=== PATIENT | female | born 1945 | race Caucasian/White ===

== ENCOUNTER 2025-01-15 09:09 | Inpatient (IN) | payer MEDICARE, MEDICAID ==
[2025-01-15] VITALS (20 sets, daily range): BP systolic 80–117; BP diastolic 42–70; PULSE 98–137; RESP 18; O2SAT 87–99
[~2025-01-15] VITALS: Ht 160 cm; Wt 104.5 kg
[~2025-01-15 09:09] MED LIST: NORepinephrine 8 MG in NS 250 ML BAG (32 mcg/ml) IV ONE
[2025-01-15] MEDS ORDERED: VANCOMYCIN 1GM 200ML H20 (PEG) 200 ML IV ONE (09:25)
[2025-01-15] MEDS: midazolam 100mg in NS 100ml 100 ML IV ONE (09:27)
[2025-01-15] MEDS: fentaNYL/PF 50MCG/1 ML 2ML syringe IV ONE (09:32)
[2025-01-15] MEDS ORDERED: iohexol 300mg/ml 100ml inj. ONE (09:48)
[2025-01-15] MEDS ORDERED: iohexol 300 MG/1 ML 50ml polymer ONE (09:49)
[2025-01-15 10:04] LABS: ABG BASE EXCESS -2.5 mmol/L (-2.0-3.0); ABG HCO3 24.1 mmol/L (21.0-28.0); ABG OXYGEN SATURATION 94.2 % (94.0-98.0); ABG PCO2 (T) 49.5 mmHg (32.0-45.0); ABG PH (T) 7.305 (7.350-7.450); ABG PO2 (T) 74.8 mmHg (83.0-108.0); ALLEN'S TEST POSITIVE; FCOHb 0.6 % (0.5-1.5); FHHb 5.7 % (0.0-5.0); FMetHb 0.3 % (0.0-1.5); FO2Hb 93.4 % (94.0-98.0); MODE VENT - AC; PATIENT TEMPERATURE 36.8; PEEP 8 cm H2O; RESPIRATORY RATE 18 b/min; TIDAL VOLUME 450 mL; TOTAL HEMOGLOBIN 11.1 G/dl (12.0-16.0)
[2025-01-15] MEDS: NORepinephrine 8mg/ 250ml NS 250 ML IV SCH (10:04)
[2025-01-15] MEDS: fentaNYL/PF 50MCG/1 ML 2ML syringe IV PRN (10:14)
[2025-01-15] MEDS ORDERED: morphine 2 MG/ML inj. syringe IV PRN (10:35)
[2025-01-15] MEDS ORDERED: ondansetron/PF 4mg/2ml inj IV PRN (10:35)
[2025-01-15] MEDS: LidoCAINE 2% Topical Jelly 11mL syringe (UROJET) TOP ONE (10:35)
[2025-01-15] MEDS ORDERED: acetaminophen 325mg tablet PO PRN ×2 (10:35)
[2025-01-15] MEDS ORDERED: magnesium hydroxide 30ml (MOM) UD suspension PO PRN (10:35)
[2025-01-15] MEDS ORDERED: morphine 4 MG/ML inj SYRINge IV PRN (10:35)
[2025-01-15 11:16] LABS: D-DIMER 3.58 MG/L FEU (0-0.50); INR 1.1 INR; PROTHROMBIN TIME 11.7 SECONDS (9.0-12.0)
[2025-01-15 11:18] LABS: ALANINE AMINOTRANSFERASE 24 U/L (12-78); ALBUMIN 2.5 G/DL (3.4-5.0); ALBUMIN/GLOBULIN RATIO 0.4 (1.1-1.5); ALKALINE PHOSPHATASE 106 IU/L (46-116); ANION GAP 9 (8-16); ASPARTATE AMINO TRANSFERASE 46 U/L (10-37); BILIRUBIN,TOTAL 0.4 MG/DL (0.1-1.0); BLOOD UREA NITROGEN 41 MG/DL (7-18); BUN/CREATININE RATIO 30.4 (10.0-20.0); CALCIUM 10.6 MG/DL (8.5-10.1); CHLORIDE 100 MMOL/L (99-107); CREATININE 1.35 MG/DL (0.40-0.90); GLUCOSE 332 MG/DL (70-104); SODIUM 142 MMOL/L (135-145); TOTAL CARBON DIOXIDE 33.1 MMOL/L (24-32); TOTAL PROTEIN 9.1 G/DL (6.4-8.2); eCRCL 27 ML/MIN; eGFR 38 ML/MIN
[2025-01-15 11:20] LABS: POTASSIUM 5.9 MMOL/L (3.5-5.1)
[2025-01-15] MEDS: FENTANYL-0.9 % NACL/PF 100 ML IV SCH (11:23)
[2025-01-15 11:26] LABS: C-REACTIVE PROTEIN 13.33 MG/DL (0.0-0.5); MAGNESIUM 2.4 MG/DL (1.5-2.4); PRO BRAIN NATRIURETIC PEPTIDE 2255 PG/ML (0-450)
[2025-01-15 11:27] LABS: APTT 24 SECONDS (22-32); FIBRINOGEN > 860 MG/DL (177-424)
[2025-01-15 12:02] LABS: BASOPHILS # (AUTO) 0.1 X10'3 (0-0.2); BASOPHILS % (AUTO) 0.4 % (0-1); EOSINOPHILS % (AUTO) 0.1 % (0-6); HEMATOCRIT 32.7 % (35.0-45.0); HEMOGLOBIN 10.1 g/dl (12.0-16.0); LYMPHOCYTES # (AUTO) 0.7 X10'3 (1.1-4.8); MEAN CORPUSCULAR HEMOGLOBIN 28.7 PG (27.0-31.0); MEAN CORPUSCULAR VOLUME 92.6 FL (78-98); MONOCYTES # (AUTO) 0.8 X10'3 (0-0.9); MONOCYTES % (AUTO) 4.9 % (2-12); NEUTROPHILS % (AUTO) 90.6 % (42-75); RED BLOOD COUNT 3.54 X10'6 (4.20-5.60); RED CELL DISTRIBUTION WIDTH 19.1 % (11.5-14.5); WHITE BLOOD COUNT 16.6 X10'3 (4.5-11.0)
[2025-01-15 12:05] LABS: MEAN PLATELET VOLUME 9.4 FL (7.4-10.4); PLATELET COUNT 261.8 X10'3 (140-440)
[2025-01-15 13:40] LABS: THYROID STIMULATING HORMONE 1.42 ulU/ml (0.34-4.50)
[2025-01-15] MEDS ORDERED: vancomycin inj 1,000 MG in normal saline 250ml IV soln 250 ML IV ONE (14:40)
[2025-01-15] MEDS: midazolam 100mg in NS 100ml 100 ML IV SCH (14:44)
[2025-01-15] MEDS: azithromycin/NS 500mg/250ml 250 ML IV ONE (14:45)
[2025-01-15 14:53] LABS: BILIRUBIN,URINE NEGATIVE (Neg); CLARITY,URINE CLEAR (Clear); COLOR,URINE YELLOW (Yellow); GLUCOSE, URINE 100 mg/dl (Neg); KETONES,URINE NEGATIVE (Neg); LEUKOCYTE ESTERASE ,URINE TRACE (Neg); NITRITES, URINE NEGATIVE (Neg); OCCULT BLOOD,URINE TRACE-INTACT (Neg); PH,URINE 7.5 (4.8-8.0); PROTEIN,URINE 30 mg/dl (Neg); UROBILINOGEN,URINE 0.2 E.U/dL (0.2-1.0)
[2025-01-15 14:54] LABS: UA COLLECTION TYPE NON-SPECIFIED
[2025-01-15] MEDS ORDERED: albuterol 2.5 MG/3 ML nebule NEB PRN (14:55)
[2025-01-15 15:04] LABS: BACTERIA,URINE FEW /HPF (Neg); MUCUS STRANDS FEW /LPF (Neg); SQUAMOUS EPITHELIAL CELL,UR FEW /LPF (FEW); WBC,URINE 30-50 /HPF (0-4)
[2025-01-15 15:05] LABS: RENAL CELLS, URINE FEW /HPF; WBC CLUMPS,URINE FEW /HPF (NEGATIVE)
[2025-01-15] MEDS: CefTRIAXone 2gm/NS 100ml IVPB 50 ML IV ONE (15:09)
[2025-01-15] MEDS ORDERED: acetaminophen 1,000mg/100ml IV 100 ML IV SCH (15:25)
[2025-01-15] MEDS: acetaminophen 1,000mg/100ml IV 100 ML IV ONE (15:28)
[2025-01-15] MEDS: methylPREDNISolone sod succ/PF 40mg inj. IV SCH (15:28)
[2025-01-15] MEDS: piperacillin/tazo 3.375gm/50ml 50 ML IV SCH (15:28)
[2025-01-15] MEDS: normal saline 1000ml 1,000 ML IV ONE (15:36)
[2025-01-15] MEDS: vancomycin/NS 1 GM ADD-VANTAGE 250 ML IV ONE (15:54)
[2025-01-15] MEDS: normal saline 1000ml 1,000 ML IV SCH (15:55)
[2025-01-15] MEDS: ipratropium/albuterol 3ml nebule NEB SCH (16:00)
[2025-01-15] MEDS ORDERED: FOLI1TAB27 PO (16:07)
[2025-01-15] MEDS ORDERED: DULO20CA50 PO (16:07)
[2025-01-15] MEDS ORDERED: CALC1CAP21 PO (16:07)
[2025-01-15] MEDS ORDERED: VITC500T PO (16:07)
[2025-01-15] MEDS ORDERED: FURO-150 PO (16:08)
[2025-01-15] MEDS ORDERED: IPRA3AMP31 NEB (16:08)
[2025-01-15] MEDS ORDERED: METH2.5T55 PO (16:09)
[2025-01-15] MEDS ORDERED: LOP12.5T PO (16:10)
[2025-01-15] MEDS ORDERED: NAPR220C62 PO (16:12)
[2025-01-15] MEDS ORDERED: MULT-1085 PO (16:12)
[2025-01-15] MEDS ORDERED: POTA-366 PO (16:16)
[2025-01-15] MEDS ORDERED: OMEP20CA15 PO (16:16)
[2025-01-15] MEDS ORDERED: PRED1TAB PO (16:16)
[2025-01-15] MEDS: ketorolac trometh 15mg/ml vial 15 MG/ML ML IV ONE (16:18)
[2025-01-15] MEDS: heparin, porcine 5000 units/ml vial SQ SCH (17:30)
[2025-01-15] MEDS ORDERED: dextrose 50%-water 50ml dispensing syringe IV PRN ×2 (18:40)
[2025-01-15] MEDS ORDERED: DEXTROSE 15 GM of carb/4 tabs (each vial/BOTTLE has 4 tablets) PO PRN ×2 (18:40)
[2025-01-15] MEDS ORDERED: glucagon, human recombinant 1mg kit SUBCUT PRN (18:40)
[2025-01-15] MEDS: acetaminophen 1,000mg/100ml IV 100 ML IV SCH (19:03)
[2025-01-15] MEDS: pantoprazole 40 MG vial IV SCH (20:29)
[2025-01-15] MEDS: INSULIN LISPRO 100 UNIT/ML INSULN.PEN MULTI-DOSE SQ SCH (21:42)
[2025-01-16] VITALS (45 sets, daily range): BP systolic 97–129; BP diastolic 51–76; PULSE 89–131; RESP 18–30; O2SAT 8–99
[2025-01-16 02:34] LABS: BASOPHILS % (AUTO) 0.1 % (0-1); MEAN CORPUSCULAR VOLUME 91.3 FL (78-98); MONOCYTES # (AUTO) 0.2 X10'3 (0-0.9); RED BLOOD COUNT 3.39 X10'6 (4.20-5.60)
[2025-01-16 02:37] LABS: EOSINOPHILS % (AUTO) 0.1 % (0-6); HEMOGLOBIN 9.8 g/dl (12.0-16.0); LYMPHOCYTES # (AUTO) 0.9 X10'3 (1.1-4.8); LYMPHOCYTES % (AUTO) 6.1 % (21-51); MEAN CORPUSCULAR HGB CONC 31.7 g/dL (33.0-36.5); MEAN PLATELET VOLUME 9.8 FL (7.4-10.4); MONOCYTES % (AUTO) 1.7 % (2-12); NEUTROPHILS # (AUTO) 12.8 X10'3 (1.8-7.7); PLATELET COUNT 135 X10'3 (140-440); RED CELL DISTRIBUTION WIDTH 19.7 % (11.5-14.5); WHITE BLOOD COUNT 13.9 X10'3 (4.5-11.0)
[2025-01-16 02:53] LABS: ALANINE AMINOTRANSFERASE 18 U/L (12-78); ALBUMIN/GLOBULIN RATIO 0.4 (1.1-1.5); ALKALINE PHOSPHATASE 84 IU/L (46-116); ANION GAP 15 (8-16); ASPARTATE AMINO TRANSFERASE 39 U/L (10-37); BILIRUBIN,TOTAL 0.4 MG/DL (0.1-1.0); BLOOD UREA NITROGEN 49 MG/DL (7-18); BUN/CREATININE RATIO 30.4 (10.0-20.0); CALCIUM 8.9 MG/DL (8.5-10.1); CHLORIDE 105 MMOL/L (99-107); CREATININE 1.61 MG/DL (0.40-0.90); GLUCOSE 233 MG/DL (70-104); MAGNESIUM 1.6 MG/DL (1.5-2.4); PHOSPHORUS 2.4 MG/DL (2.3-4.5); POTASSIUM 4.2 MMOL/L (3.5-5.1); SODIUM 144 MMOL/L (135-145); TOTAL CARBON DIOXIDE 24.1 MMOL/L (24-32); TOTAL PROTEIN 7.4 G/DL (6.4-8.2); eCRCL 23 ML/MIN; eGFR 31 ML/MIN
[2025-01-16 03:01] LABS: TOTAL CELLS COUNTED 100
[2025-01-16 03:09] LABS: ANISOCYTOSIS 2+; MICROCYTOSIS 1+; STOMATOCYTES 2+
[2025-01-16 03:30] LABS: ABG BASE EXCESS -1.3 mmol/L (-2.0-3.0); ABG HCO3 22.2 mmol/L (21.0-28.0); ABG OXYGEN SATURATION 97.6 % (94.0-98.0); ABG PCO2 (T) 34.2 mmHg (32.0-45.0); ABG PH (T) 7.434 (7.350-7.450); ABG PO2 (T) 95.4 mmHg (83.0-108.0); ALLEN'S TEST POSITIVE; FCOHb 0.9 % (0.5-1.5); FHHb 2.4 % (0.0-5.0); FMetHb 0.3 % (0.0-1.5); FO2Hb 96.4 % (94.0-98.0); MODE VC+; PATIENT TEMPERATURE 37.8; PEEP 8 cm H2O; RESPIRATORY RATE 18 b/min; TIDAL VOLUME 450 mL; TOTAL HEMOGLOBIN 10.4 G/dl (12.0-16.0)
[2025-01-16] MEDS: vancomycin/NS 1 GM ADD-VANTAGE 250 ML IV ONE (04:52)
[2025-01-16] MEDS: ringers solution, lacted 1,000 ML IV ONE (06:52)
[2025-01-16] MEDS: metoprolol tartrate 1mg/ml inj IV ONE (07:29)
[2025-01-16] MEDS ORDERED: potassium Cl 40MEQ/270ML bag 270 ML IV PRN ×2 (12:05)
[2025-01-16] MEDS ORDERED: magnesium hydroxide 30ml (MOM) UD suspension OGT PRN (12:25)
[2025-01-16] MEDS ORDERED: DEXTROSE 15 GM of carb/4 tabs (each vial/BOTTLE has 4 tablets) OGT PRN ×2 (12:26→12:27)
[2025-01-16] MEDS ORDERED: acetaminophen 325mg/10.15ml oral unit dose solution OGT PRN (12:26)
[2025-01-16] MEDS: mineral oil/petrolatum ophthal oint EACHEYE SCH (14:00)
[2025-01-16] MEDS ORDERED: DEXTROSE 15 GM of carb/4 tabs (each vial/BOTTLE has 4 tablets) PO PRN ×2 (15:35)
[2025-01-16] MEDS ORDERED: glucagon, human recombinant 1mg kit SUBCUT PRN (15:35)
[2025-01-16] MEDS ORDERED: dextrose 50%-water 50ml dispensing syringe IV PRN ×2 (15:35)
[2025-01-16] MEDS ORDERED: INSULIN LISPRO 100 UNIT/ML INSULN.PEN MULTI-DOSE SQ SCH (17:00)
[2025-01-16] MEDS ORDERED: albumin (Human) 5% 250ml 250 ML IV SCH (20:00)
[2025-01-16] MEDS ORDERED: insulin glargine (Lantus) pen - multi-dose SQ SCH (21:00)
[2025-01-16] MEDS: INSULIN LISPRO 100 UNIT/ML INSULN.PEN MULTI-DOSE SQ SCH (21:00)
[2025-01-17] VITALS (52 sets, daily range): BP systolic 104–141; BP diastolic 52–81; PULSE 92–130; RESP 15–33; O2SAT 88–99
[2025-01-17 03:19] LABS: EOSINOPHILS % (AUTO) 0 % (0-6); HEMOGLOBIN 8.7 g/dl (12.0-16.0); LYMPHOCYTES # (AUTO) 0.6 X10'3 (1.1-4.8); LYMPHOCYTES % (AUTO) 5.8 % (21-51); MONOCYTES # (AUTO) 0.5 X10'3 (0-0.9)
[2025-01-17 03:21] LABS: BASOPHILS % (AUTO) 0.2 % (0-1); HEMATOCRIT 27.8 % (35.0-45.0); MEAN CORPUSCULAR HEMOGLOBIN 28.5 PG (27.0-31.0); MEAN CORPUSCULAR HGB CONC 31.4 g/dL (33.0-36.5); MEAN PLATELET VOLUME 8.6 FL (7.4-10.4); NEUTROPHILS # (AUTO) 9.5 X10'3 (1.8-7.7); PLATELET COUNT 114 X10'3 (140-440); RED BLOOD COUNT 3.05 X10'6 (4.20-5.60); RED CELL DISTRIBUTION WIDTH 19.6 % (11.5-14.5); WHITE BLOOD COUNT 10.6 X10'3 (4.5-11.0)
[2025-01-17 03:33] LABS: ABG BASE EXCESS 1.3 mmol/L (-2.0-3.0); ABG HCO3 25.1 mmol/L (21.0-28.0); ABG OXYGEN SATURATION 96.1 % (94.0-98.0); ABG PCO2 (T) 37.4 mmHg (32.0-45.0); ABG PH (T) 7.447 (7.350-7.450); ALLEN'S TEST POSITIVE; FCOHb 1.1 % (0.5-1.5); FHHb 3.8 % (0.0-5.0); FMetHb 0.3 % (0.0-1.5); FO2Hb 94.8 % (94.0-98.0); PATIENT TEMPERATURE 37.7; PEEP 5 cm H2O; RESPIRATORY RATE 18 b/min; TIDAL VOLUME 450 mL; TOTAL HEMOGLOBIN 9.4 G/dl (12.0-16.0)
[2025-01-17 03:33] LABS: ALANINE AMINOTRANSFERASE 13 U/L (12-78); ALBUMIN/GLOBULIN RATIO 0.4 (1.1-1.5); ALKALINE PHOSPHATASE 68 IU/L (46-116); ANION GAP 11 (8-16); ASPARTATE AMINO TRANSFERASE 31 U/L (10-37); BILIRUBIN,TOTAL 0.2 MG/DL (0.1-1.0); BLOOD UREA NITROGEN 46 MG/DL (7-18); BUN/CREATININE RATIO 31.7 (10.0-20.0); CALCIUM 8.4 MG/DL (8.5-10.1); CHLORIDE 110 MMOL/L (99-107); CREATININE 1.45 MG/DL (0.40-0.90); GLUCOSE 192 MG/DL (70-104); MAGNESIUM 1.5 MG/DL (1.5-2.4); PHOSPHORUS 1.7 MG/DL (2.3-4.5); POTASSIUM 3.6 MMOL/L (3.5-5.1); SODIUM 147 MMOL/L (135-145); TOTAL CARBON DIOXIDE 26.5 MMOL/L (24-32); TOTAL PROTEIN 6.9 G/DL (6.4-8.2); eCRCL 25 ML/MIN; eGFR 35 ML/MIN
[2025-01-17 03:50] LABS: ANISOCYTOSIS 2+; MICROCYTOSIS 1+; STOMATOCYTES 1+
[2025-01-17] MEDS: methylPREDNISolone sod succ/PF 40mg inj. IV SCH (07:37)
[2025-01-17] MEDS: metoprolol tartrate 25mg tablet PO SCH (07:38)
[2025-01-17] MEDS: acetaminophen 325mg/10.15ml oral unit dose solution OGT PRN (09:34)
[2025-01-17] MEDS: COMMUNICATION ORDER 1 EA MISC MC ONE (15:42)
[2025-01-17] MEDS: insulin regular, human U-100 10ml vial - multi-dose SQ SCH (21:52)
[2025-01-18] VITALS (39 sets, daily range): BP systolic 108–150; BP diastolic 54–86; PULSE 82–122; RESP 14–30; O2SAT 95–99
[2025-01-18 04:58] LABS: ABG HCO3 22.7 mmol/L (21.0-28.0); ABG OXYGEN SATURATION 97.7 % (94.0-98.0); ABG PCO2 (T) 39.7 mmHg (32.0-45.0); ABG PH (T) 7.379 (7.350-7.450); ABG PO2 (T) 103.6 mmHg (83.0-108.0); FCOHb 0.9 % (0.5-1.5); FHHb 2.3 % (0.0-5.0); FMetHb 0.3 % (0.0-1.5); FO2Hb 96.5 % (94.0-98.0); PATIENT TEMPERATURE 37.7; PEEP 5 cm H2O; RESPIRATORY RATE 18 b/min; TIDAL VOLUME 450 mL
[2025-01-18 08:10] LABS: ALANINE AMINOTRANSFERASE 18 U/L (12-78); ALBUMIN/GLOBULIN RATIO 0.4 (1.1-1.5); ALKALINE PHOSPHATASE 54 IU/L (46-116); ANION GAP 11 (8-16); ASPARTATE AMINO TRANSFERASE 33 U/L (10-37); BILIRUBIN,TOTAL 0.2 MG/DL (0.1-1.0); BLOOD UREA NITROGEN 55 MG/DL (7-18); BUN/CREATININE RATIO 41.7 (10.0-20.0); CALCIUM 8.3 MG/DL (8.5-10.1); CHLORIDE 114 MMOL/L (99-107); CREATININE 1.32 MG/DL (0.40-0.90); GLUCOSE 196 MG/DL (70-104); MAGNESIUM 1.6 MG/DL (1.5-2.4); PHOSPHORUS 1.3 MG/DL (2.3-4.5); POTASSIUM 3.5 MMOL/L (3.5-5.1); SODIUM 150 MMOL/L (135-145); TOTAL CARBON DIOXIDE 25.3 MMOL/L (24-32); TOTAL PROTEIN 6.5 G/DL (6.4-8.2); eCRCL 28 ML/MIN; eGFR 39 ML/MIN
[2025-01-18 13:56] LABS: BASOPHILS % (AUTO) 0.1 % (0-1); EOSINOPHILS % (AUTO) 0.1 % (0-6); HEMOGLOBIN 9.3 g/dl (12.0-16.0); LYMPHOCYTES # (AUTO) 0.6 X10'3 (1.1-4.8); MEAN CORPUSCULAR VOLUME 92.9 FL (78-98); NEUTROPHILS # (AUTO) 10.5 X10'3 (1.8-7.7); RED CELL DISTRIBUTION WIDTH 20.2 % (11.5-14.5)
[2025-01-18 13:58] LABS: HEMATOCRIT 30.7 % (35.0-45.0); LYMPHOCYTES % (AUTO) 4.7 % (21-51); MEAN CORPUSCULAR HGB CONC 30.1 g/dL (33.0-36.5); MEAN PLATELET VOLUME 9.5 FL (7.4-10.4); MONOCYTES # (AUTO) 0.7 X10'3 (0-0.9); NEUTROPHILS % (AUTO) 89.1 % (42-75); PLATELET COUNT 111 X10'3 (140-440); RED BLOOD COUNT 3.31 X10'6 (4.20-5.60); WHITE BLOOD COUNT 11.7 X10'3 (4.5-11.0)
[2025-01-18] MEDS: metoprolol tartrate 25mg tablet PO SCH (13:58)
[2025-01-18] MEDS: vancomycin/NS 1 GM ADD-VANTAGE 250 ML IV SCH (13:58)
[2025-01-18] MEDS: MESSAGE TO NURSING IV ONE ×2 (13:59→21:34)
[2025-01-18] MEDS ORDERED: insulin regular, human U-100 10ml vial - multi-dose SQ SCH (14:00)
[2025-01-18 14:06] LABS: APTT 24 SECONDS (22-32); INR 1.1 INR; PROTHROMBIN TIME 11.3 SECONDS (9.0-12.0)
[2025-01-18] MEDS: heparin 10,000 units/1 ML INJ IV ONE (14:07)
[2025-01-18] MEDS: heparin 25,000 UNIT/250ml bag 250 ML IV PRN (14:09)
[2025-01-18 14:28] LABS: TOTAL CELLS COUNTED 100
[2025-01-18 14:29] LABS: ANISOCYTOSIS 3+; PLATELET ESTIMATE DECREASED
[2025-01-18 14:30] LABS: MICROCYTOSIS 1+; STOMATOCYTES 1+
[2025-01-18] MEDS: INSULIN LISPRO 100 UNIT/ML INSULN.PEN MULTI-DOSE SQ SCH (17:13)
[2025-01-18] MEDS: methylPREDNISolone sod succ 125mg/2ml vial IV SCH (21:17)
[2025-01-18] MEDS: heparin 10,000 units/1 ML INJ IV PRN (21:24)
[2025-01-18] MEDS: insulin glargine (Lantus) pen - multi-dose SQ SCH (21:26)
[2025-01-19] VITALS (30 sets, daily range): BP systolic 120–145; BP diastolic 61–84; PULSE 61–110; RESP 10–29; TEMP 97.2–97.6; O2SAT 89–100
[2025-01-19 03:42] LABS: BASOPHILS % (AUTO) 0 % (0-1); EOSINOPHILS % (AUTO) 0 % (0-6); HEMATOCRIT 29.6 % (35.0-45.0); HEMOGLOBIN 9.1 g/dl (12.0-16.0); LYMPHOCYTES # (AUTO) 0.9 X10'3 (1.1-4.8); LYMPHOCYTES % (AUTO) 5.3 % (21-51); MEAN CORPUSCULAR HEMOGLOBIN 28.5 PG (27.0-31.0); MEAN CORPUSCULAR HGB CONC 30.6 g/dL (33.0-36.5); MEAN CORPUSCULAR VOLUME 93.1 FL (78-98); MEAN PLATELET VOLUME 9.7 FL (7.4-10.4); MONOCYTES # (AUTO) 1.2 X10'3 (0-0.9); MONOCYTES % (AUTO) 7.1 % (2-12); NEUTROPHILS # (AUTO) 14.2 X10'3 (1.8-7.7); NEUTROPHILS % (AUTO) 87.6 % (42-75); PLATELET COUNT 118 X10'3 (140-440); RED BLOOD COUNT 3.18 X10'6 (4.20-5.60); RED CELL DISTRIBUTION WIDTH 20.7 % (11.5-14.5); WHITE BLOOD COUNT 16.2 X10'3 (4.5-11.0)
[2025-01-19 03:59] LABS: TOTAL CELLS COUNTED 100
[2025-01-19] MEDS: MESSAGE TO NURSING IV ONE ×4 (04:25→23:04)
[2025-01-19 04:44] LABS: ALANINE AMINOTRANSFERASE 57 U/L (12-78); ALBUMIN 2.3 G/DL (3.4-5.0); ALBUMIN/GLOBULIN RATIO 0.5 (1.1-1.5); ALKALINE PHOSPHATASE 56 IU/L (46-116); ANION GAP 10 (8-16); ASPARTATE AMINO TRANSFERASE 93 U/L (10-37); BILIRUBIN,TOTAL 0.3 MG/DL (0.1-1.0); BLOOD UREA NITROGEN 52 MG/DL (7-18); BUN/CREATININE RATIO 43.7 (10.0-20.0); CALCIUM 8.6 MG/DL (8.5-10.1); CHLORIDE 112 MMOL/L (99-107); CREATININE 1.19 MG/DL (0.40-0.90); GLUCOSE 171 MG/DL (70-104); MAGNESIUM 1.6 MG/DL (1.5-2.4); PHOSPHORUS 3.1 MG/DL (2.3-4.5); SODIUM 147 MMOL/L (135-145); TOTAL CARBON DIOXIDE 24.9 MMOL/L (24-32); TOTAL PROTEIN 6.9 G/DL (6.4-8.2); eCRCL 31 ML/MIN; eGFR 44 ML/MIN
[2025-01-19 04:45] LABS: POTASSIUM 4.3 MMOL/L (3.5-5.1)
[2025-01-19] MEDS ORDERED: vancomycin/NS 1 GM ADD-VANTAGE 250 ML X 1 DOSE IV SCH (09:00)
[2025-01-19 11:32] LABS: CHOLESTEROL 157 MG/DL (0-200); HDL CHOLESTEROL 26 MG/DL (35-60); LDL CHOLESTEROL 93 MG/DL (50-100); TRIGLYCERIDES 296 MG/DL (20-135)
[2025-01-19] MEDS: furosemide 40mg/4ml inj IV ONE (12:45)
[2025-01-19] MEDS: clopidogrel 75mg tablet PO SCH (13:03)
[2025-01-19] MEDS ORDERED: acetaminophen 325mg tablet PO PRN (14:25)
[2025-01-19] MEDS: acetaminophen 325mg tablet PO PRN (14:42)
[2025-01-19] MEDS: insulin glargine (Lantus) pen - multi-dose SQ SCH (20:24)
[2025-01-20] VITALS (24 sets, daily range): BP systolic 123–138; BP diastolic 55–70; PULSE 59–107; RESP 14–31; TEMP 96.3–97.8; O2SAT 89–98
[2025-01-20 07:17] LABS: ALANINE AMINOTRANSFERASE 94 U/L (12-78); ALBUMIN 2.3 G/DL (3.4-5.0); ALBUMIN/GLOBULIN RATIO 0.5 (1.1-1.5); ALKALINE PHOSPHATASE 53 IU/L (46-116); ANION GAP 11 (8-16); ASPARTATE AMINO TRANSFERASE 90 U/L (10-37); BILIRUBIN,TOTAL 0.4 MG/DL (0.1-1.0); BLOOD UREA NITROGEN 61 MG/DL (7-18); BUN/CREATININE RATIO 45.5 (10.0-20.0); CHLORIDE 109 MMOL/L (99-107); CREATININE 1.34 MG/DL (0.40-0.90); GLUCOSE 152 MG/DL (70-104); MAGNESIUM 1.7 MG/DL (1.5-2.4); POTASSIUM 4.2 MMOL/L (3.5-5.1); SODIUM 147 MMOL/L (135-145); TOTAL CARBON DIOXIDE 27.2 MMOL/L (24-32); TOTAL PROTEIN 6.6 G/DL (6.4-8.2); eCRCL 27 ML/MIN; eGFR 38 ML/MIN
[2025-01-20] MEDS: MESSAGE TO NURSING IV ONE ×3 (08:20→20:30)
[2025-01-20 10:23] LABS: BASOPHILS % (AUTO) 0.1 % (0-1); HEMOGLOBIN 9.3 g/dl (12.0-16.0); LYMPHOCYTES # (AUTO) 0.7 X10'3 (1.1-4.8); MEAN CORPUSCULAR HEMOGLOBIN 28.3 PG (27.0-31.0); MEAN PLATELET VOLUME 9.7 FL (7.4-10.4); MONOCYTES # (AUTO) 0.7 X10'3 (0-0.9)
[2025-01-20 10:25] LABS: EOSINOPHILS % (AUTO) 0.1 % (0-6); HEMATOCRIT 30.5 % (35.0-45.0); MEAN CORPUSCULAR HGB CONC 30.6 g/dL (33.0-36.5); MEAN CORPUSCULAR VOLUME 92.3 FL (78-98); MONOCYTES % (AUTO) 6.4 % (2-12); NEUTROPHILS # (AUTO) 10.1 X10'3 (1.8-7.7); NEUTROPHILS % (AUTO) 87.4 % (42-75); WHITE BLOOD COUNT 11.5 X10'3 (4.5-11.0)
[2025-01-20 10:48] LABS: PLATELET COUNT 151 X10'3 (140-440)
[2025-01-20] MEDS ORDERED: MESSAGE TO NURSING IV ONE ×2 (13:45)
[2025-01-20] MEDS ORDERED: CLOP75TA34 PO (15:01)
[2025-01-20] MEDS: metoprolol tartrate 25mg tablet PO SCH (20:22)
[2025-01-20] MEDS ORDERED: VANCOMYCIN LEVEL IV ONE (20:30)
[2025-01-21] VITALS (9 sets, daily range): BP systolic 140–146; BP diastolic 68–74; PULSE 61–76; RESP 17–31; TEMP 97.3–98; O2SAT 91–99
[2025-01-21 03:11] LABS: EOSINOPHILS % (AUTO) 0 % (0-6); MEAN CORPUSCULAR HGB CONC 30.5 g/dL (33.0-36.5); MEAN PLATELET VOLUME 9.7 FL (7.4-10.4); MONOCYTES # (AUTO) 0.7 X10'3 (0-0.9); MONOCYTES % (AUTO) 5.6 % (2-12)
[2025-01-21 03:13] LABS: BASOPHILS % (AUTO) 0.1 % (0-1); HEMATOCRIT 29.9 % (35.0-45.0); HEMOGLOBIN 9.1 g/dl (12.0-16.0); LYMPHOCYTES # (AUTO) 0.6 X10'3 (1.1-4.8); LYMPHOCYTES % (AUTO) 4.7 % (21-51); MEAN CORPUSCULAR HEMOGLOBIN 28.5 PG (27.0-31.0); MEAN CORPUSCULAR VOLUME 93.4 FL (78-98); NEUTROPHILS # (AUTO) 11.9 X10'3 (1.8-7.7); NEUTROPHILS % (AUTO) 89.6 % (42-75); RED CELL DISTRIBUTION WIDTH 20.7 % (11.5-14.5); WHITE BLOOD COUNT 13.3 X10'3 (4.5-11.0)
[2025-01-21 03:22] LABS: PLATELET COUNT 129 X10'3 (140-440)
[2025-01-21 03:26] LABS: ALANINE AMINOTRANSFERASE 93 U/L (12-78); ALBUMIN 2.4 G/DL (3.4-5.0); ALBUMIN/GLOBULIN RATIO 0.6 (1.1-1.5); ALKALINE PHOSPHATASE 64 IU/L (46-116); ANION GAP 10 (8-16); ASPARTATE AMINO TRANSFERASE 63 U/L (10-37); BILIRUBIN,TOTAL 0.4 MG/DL (0.1-1.0); BLOOD UREA NITROGEN 67 MG/DL (7-18); BUN/CREATININE RATIO 47.5 (10.0-20.0); CALCIUM 9.2 MG/DL (8.5-10.1); CHLORIDE 109 MMOL/L (99-107); CREATININE 1.41 MG/DL (0.40-0.90); GLUCOSE 182 MG/DL (70-104); MAGNESIUM 1.8 MG/DL (1.5-2.4); POTASSIUM 4.4 MMOL/L (3.5-5.1); SODIUM 146 MMOL/L (135-145); TOTAL CARBON DIOXIDE 27.2 MMOL/L (24-32); TOTAL PROTEIN 6.7 G/DL (6.4-8.2); eCRCL 26 ML/MIN; eGFR 36 ML/MIN
[2025-01-21] MEDS ORDERED: heparin 25,000 UNIT/250ml bag 250 ML IV PRN (03:54)
[2025-01-21 04:05] LABS: TOTAL CELLS COUNTED 100
[2025-01-21] MEDS: MESSAGE TO NURSING IV ONE (04:10)
[2025-01-21] MEDS ORDERED: VANCOMYCIN LEVEL IV ONE (12:30)
== END 2025-01-21 12:00 | DRG 871 ==
LOC: ER 09:09 → ED HOLD 10:39 → CICU 2S 17:04 → PCU 3S 01-19 21:05
PROVIDERS: ADMIT Internal Medicine Critical Care Medicine; ATTEND Internal Medicine Critical Care Medicine
PROC: 0BH17EZ Insertion of Endotracheal Airway into Trachea, Via Natural or Artificial Opening (ICD-10-PCS; principal; 2025-01-15)
PROC: 5A1945Z Respiratory Ventilation, 24-96 Consecutive Hours (ICD-10-PCS; 2025-01-15)
PROC: 05HY33Z Insertion of Infusion Device into Upper Vein, Percutaneous Approach (ICD-10-PCS; 2025-01-15)
PROC: B54MZZA Ultrasonography of Right Upper Extremity Veins, Guidance (ICD-10-PCS; 2025-01-15)
PROC: BW251ZZ Computerized Tomography (CT Scan) of Chest, Abdomen and Pelvis using Low Osmolar Contrast (ICD-10-PCS; 2025-01-15)
PROC: B3251ZZ Computerized Tomography (CT Scan) of Bilateral Common Carotid Arteries using Low Osmolar Contrast (ICD-10-PCS; 2025-01-15)
PROC: B32G1ZZ Computerized Tomography (CT Scan) of Bilateral Vertebral Arteries using Low Osmolar Contrast (ICD-10-PCS; 2025-01-15)
PROC: B32R1ZZ Computerized Tomography (CT Scan) of Intracranial Arteries using Low Osmolar Contrast (ICD-10-PCS; 2025-01-15)
PROC: B3281ZZ Computerized Tomography (CT Scan) of Bilateral Internal Carotid Arteries using Low Osmolar Contrast (ICD-10-PCS; 2025-01-15)
PROC: 5A09357 Assistance with Respiratory Ventilation, Less than 24 Consecutive Hours, Continuous Positive Airway Pressure (ICD-10-PCS; 2025-01-17)
PROC: 5A09357 Assistance with Respiratory Ventilation, Less than 24 Consecutive Hours, Continuous Positive Airway Pressure (ICD-10-PCS; 2025-01-18)
PROC: 5A09357 Assistance with Respiratory Ventilation, Less than 24 Consecutive Hours, Continuous Positive Airway Pressure (ICD-10-PCS; 2025-01-20)
PROC: 5A09357 Assistance with Respiratory Ventilation, Less than 24 Consecutive Hours, Continuous Positive Airway Pressure (ICD-10-PCS; 2025-01-21)
DX: A41.9 Sepsis, unspecified organism (principal); G93.41 Metabolic encephalopathy; N17.0 Acute kidney failure with tubular necrosis; I21.A1 Myocardial infarction type 2; R65.21 Severe sepsis with septic shock; J15.9 Unspecified bacterial pneumonia; I50.23 Acute on chronic systolic (congestive) heart failure; J96.21 Acute and chronic respiratory failure with hypoxia; Z68.41 Body mass index [BMI] 40.0-44.9, adult; I51.81 Takotsubo syndrome; E87.29 Other acidosis; I47.10 Supraventricular tachycardia, unspecified; E66.01 Morbid (severe) obesity due to excess calories; I44.7 Left bundle-branch block, unspecified; I73.9 Peripheral vascular disease, unspecified; E87.5 Hyperkalemia; D64.9 Anemia, unspecified; Z87.891 Personal history of nicotine dependence; Z79.02 Long term (current) use of antithrombotics/antiplatelets
CPT/HCPCS: 31500; 36415; 36600; 70450; 70496; 70498; 71045; 71260; 74177; 80053; 80061; 81001; 82803; 82948; 83036; 83605; 83735; 83880; 84100; 84134; 84145; 84443; 84484; 85007; 85008; 85018; 85025; 85379; 85384; 85610; 85651; 85730; 86140; 87040; 87070; 87077; 87081; 87088; 87186; 87502; 87503; 87811; 92508; 92616; 93005; 93306; 93922; 94002; 94003; 94640; 94660; 94668; 94760; 94799; 96365; 96367; 96368; 96375; 97161; 97530; 99291; A4615; A4620; A5200; A6209; A6212; A6213; A6222; A6223; A6250; A6258; A6446; A6449; A7015; C1758; G0378; J0131; J0456; J0696; J1644; J1815; J1885; J1940; J2470; J2543; J2919; J3010; J3370; J3490; J7030; J7040; J7120; Q9967